=== PATIENT | male | born 1945 | race Two or more races ===

== ENCOUNTER 2017-02-14 11:49 | Emergency (ER) | payer OTHER, MEDICARE ==
[~2017-02-14] VITALS: Ht 165.1 cm; Wt 96.8 kg
[~2017-02-14 11:49] MED LIST: ASPI-621 PO; CARV3.1212 PO; ENAL10TA PO; ENAL20TA68 PO; FURO-93 PO; NITR0.4T SL; POTA20TA14 PO; TICA90TA PO
[2017-02-14] MEDS ORDERED: CARV6.252 PO (12:47)
[2017-02-14] MEDS ORDERED: CLOP75TA PO (12:47)
[2017-02-14] MEDS ORDERED: SPIR25TA3 PO (12:47)
[2017-02-14] MEDS ORDERED: ENAL10TA PO (12:47)
[2017-02-14] MEDS ORDERED: ASPI-650 PO (12:47)
[2017-02-14] MEDS ORDERED: SODIUM CHLORIDE FLUSH 10ML SYR IVF ONE (13:00)
[2017-02-14 13:04] LABS: BASOPHILS # (AUTO) 0.02 x10^3/uL (0-0.1); BASOPHILS % (AUTO) 0 % (0-1); EOSINOPHILS % (AUTO) 3 % (1-7); LYMPHOCYTES # (AUTO) 1.67 x10^3/uL (1-3.4); LYMPHOCYTES % (AUTO) 27 % (22-44); MD NO; MEAN CORPUSCULAR HEMOGLOBIN 30.4 pg (27.5-34.5); MEAN CORPUSCULAR HGB CONC 33.2 g/dL (33.2-36.2); MEAN CORPUSCULAR VOLUME 91.4 fL (81-97); MEAN PLATELET VOLUME 7.2 fL (7.4-10.4); MONOCYTES # (AUTO) 0.66 x10^3/uL (0.2-0.8); MONOCYTES % (AUTO) 11 % (2-9); NEUTROPHILS # (AUTO) 3.63 x10^3/uL (1.8-6.8); NEUTROPHILS % (AUTO) 59 % (42-75); PLATELET COUNT 250 x10^3/uL (130-400); RED BLOOD COUNT 5.48 x10^6/uL (4.38-5.82); RED CELL DISTRIBUTION WIDTH 13.5 % (9.4-14.8)
[2017-02-14 13:17] LABS: ALBUMIN 3.7 g/dL (3.4-5.0); ANION GAP 7 mmol/L (5-15); CALCIUM 8.2 mg/dL (8.5-10.1); CHLORIDE 108 mmol/L (98-107)
[2017-02-14 13:22] LABS: ALANINE AMINOTRANSFERASE 11 U/L (12-78); ALKALINE PHOSPHATASE 85 U/L (45-117); BILIRUBIN,TOTAL 0.6 mg/dL (0.2-1.0); CREATININE 1.13 mg/dL (0.7-1.3); TOTAL PROTEIN 8.6 g/dL (6.4-8.2); TROPONIN I < 0.015 ng/mL (0.000-0.045)
[2017-02-14 14:23] LABS: MICROSCOPIC AUTO
[2017-02-14 14:54] LABS: CULTURE INDICATED? YES
[2017-02-14] MEDS ORDERED: CEFTRIAXONE PMX 1GM/50ML 50 ML IVPB ONE (15:00)
[2017-02-14] MEDS ORDERED: CEFTRIAXONE PMX 1GM/50ML 50 ML ONE (15:16)
[2017-02-14 15:36] VITALS: BP 132/85
== END 2017-02-14 15:46 | disposition home or self-care (01) ==
LOC: ED 14:06
DX: N30.90 Cystitis, unspecified without hematuria (principal); I10 Essential (primary) hypertension; B96.89 Other specified bacterial agents as the cause of diseases classified elsewhere
CPT/HCPCS: 36415; 71010; 80053; 81001; 83880; 84484; 85025; 87077; 87086; 87186; 93005; 96365; 99285; J0696